=== PATIENT | female | born 1950 | race Caucasian/White ===

== ENCOUNTER 2018-02-20 08:28 | Inpatient (IN) | payer OTHER ==
[~2018-02-20] VITALS: Ht 157.5 cm; Wt 54.8 kg
[~2018-02-20 08:28] MED LIST: COUMADIN,JANTOVE2 MG PO; Caltrate 600+D Plus PO; Feosol PO; Pletal PO; PriLOSEC PO; SENOKOT S,PE1 TABLET PO; Vicodin,Lortab 5/500 PO; Zestril,Prinivil PO; Zocor PO; ZyrTEC PO
[2018-02-20 09:13] LABS: APPEARANCE SL.HAZY ((CLEAR)); BILIRUBIN NEGATIVE; BLOOD NEGATIVE; COLOR AMBER ((YELLOW)); GLUCOSE (STRIP) NEGATIVE; KETONES 5; LEUKOCYTES NEGATIVE; NITRITE NEGATIVE; PROTEIN (STRIP) 30; SPECIFIC GRAVITY 1.027 (1.000-1.030)
[2018-02-20 09:21] LABS: HEMATOCRIT 42.8 % (36.0-46.0); MCH 31.1 PG (29.0-34.0); MCV 88.8 FL (83-99); NRBC (%) 0.2 /100 WBC (0-0); RBC DIS.WIDTH-CV 13.6 % (11.8-14.6); RBC DIS.WIDTH-SD 44.1 % (39-53); RED BLOOD COUNT 4.82 M/uL (3.80-5.20); WHITE BLOOD COUNT 17.5 K/uL (4.1-10.2)
[2018-02-20 09:30] LABS: BACTERIA 2+ /HPF; EPITHELIAL CELLS 2+ /HPF; MUCUS NONE SEEN /LPF; RED BLOOD CELLS NONE SEEN /HPF (0-5); UCUL ADDED? YES; WHITE BLOOD CELLS 0-5 /HPF (0-5)
[2018-02-20 09:38] LABS: TROP-I INTERPRETATION NEGATIVE; TROPONIN-I < 0.01 ng/mL (0.0-0.30)
[2018-02-20 09:50] LABS: CHLORIDE 103 MEQ/L (99-109); POTASSIUM 3.5 MEQ/L (3.7-5.4); SODIUM 138 MEQ/L (136-147)
[2018-02-20 09:56] LABS: CREATININE 1.1 MG/DL (0.6-1.3); GFR ESTIMATE (CALCULATED) 53 mL/min/; GLUCOSE 120 mg/dL (70-99); UREA NITROGEN (BUN) 31 mg/dL (9-23)
[2018-02-20 09:57] LABS: PLAT.SUFFICIENCY ADEQUATE; PLATELET COUNT 253 K/uL (156-360)
[2018-02-20] MEDS ORDERED: CALTRATE 600 +1 EAC1 PO (11:20)
[2018-02-20] MEDS ORDERED: CYCLOBENZAPRINE10 MG PO (11:21)
[2018-02-20] MEDS ORDERED: PRILOSEC20 MG PO (11:21)
[2018-02-20] MEDS ORDERED: FEOSOL325 MG PO (11:22)
[2018-02-20] MEDS ORDERED: ZYRTEC10 M2 PO (11:22)
[2018-02-20] MEDS ORDERED: TRAMADOL HCL50 MG PO (11:22)
[2018-02-20] MEDS ORDERED: SIMVASTATIN40 MG PO (11:23)
[2018-02-20] MEDS ORDERED: ALEVE220 MG PO (11:24)
[2018-02-20] MEDS ORDERED: VERAPAMIL HCL240 MG PO (11:24)
[2018-02-20] MEDS ORDERED: CILOSTAZOL100 MG PO (11:29)
[2018-02-20 13:15] LABS: CSF TUBE NUMBER TUBE #2
[2018-02-20 13:16] LABS: APPEARANCE CLEAR/COLORLESS; RED CELL COUNT 320 /MM^3 (0-1)
[2018-02-20 13:17] LABS: WHITE CELL COUNT 4 /MM^3 (0-5)
[2018-02-20 13:22] LABS: CSF EOSINOPHILS 0 % (0-25); MONONUCLEAR WBC'S 96 % (50-90); POLYNUCLEAR WBC'S 4 % (0-3)
[2018-02-20 13:24] LABS: CSF PROTEIN 58 mg/dL (15-45); CSF TUBE NUMBER (RECHECK) TUBE #1; GLUCOSE, CSF 71 mg/dL (40-80)
[2018-02-20 13:25] LABS: APPEARANCE (RECHECK) CLEAR/COLORLESS; RED CELL COUNT (RECHECK) 201 /MM^3 (0-1)
[2018-02-20 14:41] VITALS: BP 121/58
[2018-02-20 23:47] VITALS: BP 151/72
[2018-02-21 06:35] LABS: HEMATOCRIT 40.5 % (36.0-46.0); HEMOGLOBIN 13.6 G/DL (11.9-15.5); MCH 30.1 PG (29.0-34.0); MCHC 33.6 G/DL (30.0-36.0); MCV 89.6 FL (83-99); RBC DIS.WIDTH-CV 13.7 % (11.8-14.6); RBC DIS.WIDTH-SD 45.4 % (39-53); RED BLOOD COUNT 4.52 M/uL (3.80-5.20); WHITE BLOOD COUNT 15.8 K/uL (4.1-10.2)
[2018-02-21 06:39] LABS: CHLORIDE 106 MEQ/L (99-109); GFR ESTIMATE (CALCULATED) 59 mL/min/; GLUCOSE 127 mg/dL (70-99); POTASSIUM 3.8 MEQ/L (3.7-5.4); SODIUM 142 MEQ/L (136-147); UREA NITROGEN (BUN) 34 mg/dL (9-23)
[2018-02-21 07:15] LABS: PLAT.SUFFICIENCY ADEQUATE; PLATELET CLUMPS PRESENT - PLATELET COUNT APPEARS ADEQUATE; PLATELET COUNT UNABLE TO REPORT K/uL (156-360)
[2018-02-21 11:13] VITALS: BP 172/69
[2018-02-21 15:29] VITALS: BP 144/77
[2018-02-21 23:10] VITALS: BP 138/76
[2018-02-22 05:35] LABS: HEMATOCRIT 36.2 % (36.0-46.0); HEMOGLOBIN 12.4 G/DL (11.9-15.5); MCH 30.5 PG (29.0-34.0); MCHC 34.3 G/DL (30.0-36.0); MCV 89.2 FL (83-99); PLATELET COUNT 221 K/uL (156-360); RBC DIS.WIDTH-CV 13.6 % (11.8-14.6); RBC DIS.WIDTH-SD 44.5 % (39-53); RED BLOOD COUNT 4.06 M/uL (3.80-5.20); WHITE BLOOD COUNT 12.6 K/uL (4.1-10.2)
[2018-02-22 05:53] LABS: ALBUMIN 3.5 G/DL (3.2-4.8); ALKALINE PHOSPHATASE 44 IU/L (3-129); ALT (GPT) 17 IU/L (3-49); AST (GOT) 19 IU/L (2-34); CHLORIDE 106 MEQ/L (99-109); CREATININE 0.8 MG/DL (0.6-1.3); GFR ESTIMATE (CALCULATED) > 59 mL/min/; GLUCOSE 125 mg/dL (70-99); POTASSIUM 3.7 MEQ/L (3.7-5.4); SODIUM 138 MEQ/L (136-147); TOTAL BILIRUBIN 0.5 MG/DL (0.0-1.0); TOTAL PROTEIN 5.7 G/DL (6.4-8.3); UREA NITROGEN (BUN) 30 mg/dL (9-23)
[2018-02-22 07:32] VITALS: BP 140/78
[2018-02-22 11:17] VITALS: BP 164/89
[2018-02-22 15:56] VITALS: BP 168/86
[2018-02-22 19:13] VITALS: BP 151/77
[2018-02-22 23:32] VITALS: BP 137/68
[2018-02-23] VITALS (9 sets, daily range): BP systolic 108–186; BP diastolic 51–114
[2018-02-23 10:21] LABS: HEMATOCRIT 42.6 % (36.0-46.0); MCH 30.8 PG (29.0-34.0); MCHC 34.7 G/DL (30.0-36.0); MCV 88.8 FL (83-99); RBC DIS.WIDTH-CV 13.3 % (11.8-14.6); RBC DIS.WIDTH-SD 43.7 % (39-53); WHITE BLOOD COUNT 16.2 K/uL (4.1-10.2)
[2018-02-23 10:22] LABS: ALBUMIN 4.2 g/dL (3.2-4.8); CHLORIDE 107 mEq/L (99-109); POTASSIUM 3.7 mEq/L (3.7-5.4); SODIUM 140 mEq/L (136-147)
[2018-02-23 10:24] LABS: GLUCOSE 149 mg/dL (70-99); TOTAL PROTEIN 7.2 g/dL (6.4-8.3)
[2018-02-23 10:26] LABS: TOTAL BILIRUBIN 0.6 mg/dL (0.0-1.0)
[2018-02-23 10:28] LABS: ALKALINE PHOSPHATASE 62 IU/L (3-129); CREATININE 1.2 mg/dL (0.6-1.3); GFR ESTIMATE (CALCULATED) 48 mL/min/
[2018-02-23 10:29] LABS: UREA NITROGEN (BUN) 27 mg/dL (9-23)
[2018-02-23 10:30] LABS: AST (GOT) 28 IU/L (2-34)
[2018-02-23 10:31] LABS: ALT (GPT) 40 IU/L (3-49)
[2018-02-23 10:40] LABS: HEMOGLOBIN 14.8 G/DL (11.9-15.5)
[2018-02-23 10:51] LABS: C-REACTIVE PROTEIN 9.2 MG/L (0-10)
[2018-02-23 11:00] LABS: PLATELET CLUMPS PRESENT - PLATELET COUNT APPEARS ADEQUATE
[2018-02-23 11:06] LABS: PLATELET COUNT UNABLE TO REPORT K/uL (156-360)
[2018-02-23 11:13] LABS: ERTH.SED.RATE 21 MM/HR (0-30)
[2018-02-23 16:14] LABS: BENZODIAZEPINES, URINE SCREEN Negative (200 ng/mL)
[2018-02-23 16:51] LABS: COMMENTS - BLOOD GASES C+; DEVICE VENT; FI02 40 %; MECHANICAL RATE 12 resp/min; MODE AC; O2 SATURATION (CALCULATED) 99.6 % (95-99); PCO2 39 mm Hg (35-45); PEEP 5 CM/H20; PO2 165 mm Hg (80-100); SITE RR ALINE; TIDAL VOLUME 450 ML; TOTAL RESP RATE 12 resp/min; pH 7.34 (7.35-7.45)
[2018-02-23 16:52] LABS: BASE EXCESS -4.4 mEq/L (-3 to +3); BICARBONATE 21 mEq/L (22-26); CARBOXY HGB 1.7 % (0-5); METHEMOGLOBIN 0.2 % (0-1.5)
== END 2018-02-23 20:02 | disposition short-term general hospital (02) | DRG 65 ==
LOC: EME 08:28 → EDOF 11:02 → 3EAST 11:02 → EDOF 11:02 → ENRESERV 11:05 → EDOF 13:53 → 3EAST 14:29 → ENRESERV 02-23 11:15 → CANRESERV 02-23 11:15 → ENRESERV 02-23 11:25 → CANRESERV 02-23 11:25 → ENRESERV 02-23 12:49 → 3EAST 02-23 13:53 → ENRESERV 02-23 13:57 → 4WEST 02-23 14:10
PROVIDERS: Emergency Medicine; Family Medicine; Internal Medicine; Radiology Diagnostic Radiology
DX: I60.2 Nontraumatic subarachnoid hemorrhage from anterior communicating artery (principal); G91.2 (Idiopathic) normal pressure hydrocephalus; F05 Delirium due to known physiological condition; R47.01 Aphasia; F33.9 Major depressive disorder, recurrent, unspecified; R40.20 Unspecified coma; E78.5 Hyperlipidemia, unspecified; G30.9 Alzheimer's disease, unspecified; F02.80 Dementia in other diseases classified elsewhere, unspecified severity, without behavioral disturbance, psychotic disturbance, mood disturbance, and anxiety; G25.81 Restless legs syndrome; I10 Essential (primary) hypertension; I73.9 Peripheral vascular disease, unspecified; K21.9 Gastro-esophageal reflux disease without esophagitis; M48.02 Spinal stenosis, cervical region; B02.9 Zoster without complications; M25.78 Osteophyte, vertebrae; Z60.2 Problems related to living alone; G40.409 Other generalized epilepsy and epileptic syndromes, not intractable, without status epilepticus; Z86.73 Personal history of transient ischemic attack (TIA), and cerebral infarction without residual deficits; Z87.11 Personal history of peptic ulcer disease; Z87.891 Personal history of nicotine dependence; Z90.710 Acquired absence of both cervix and uterus; Z98.62 Peripheral vascular angioplasty status
CPT/HCPCS: 36600; 36620; 62270; 70450; 70460; 71045; 72141; 77003; 80048; 80053; 80306 90; 81003; 82140; 82945; 82948; 84157; 84484; 85027; 85651; 86140; 86617 90; 86618 90; 87040; 87070; 87086; 87205; 87641; 89051; 93005; 94002; 94760; 94799; 99281; 99285; C1751; G0378; G8978 GP CH; G8979 GP CH; G8980 GP CH; G8987 GO CH; G8988 GO CH; G8989 GO CH; J0696; J1200; J1630; J1650; J2060; J2405; J2704; J7030